=== PATIENT | male | born 1975 | race African-American/Black ===

== ENCOUNTER 2018-01-10 15:25 | Emergency (ER) | payer OTHER ==
[~2018-01-10] VITALS: Ht 182.9 cm; Wt 136.1 kg
[2018-01-10] MEDS ORDERED: ERYTHROMYCIN E3.5 G3 OPHTHALMIC (15:28)
[2018-01-10] MEDS ORDERED: BENADRYL25 MG PO (15:28)
[2018-01-10] MEDS ORDERED: METFORMIN HCL500 MG PO (15:32)
[2018-01-10 16:01] VITALS: BP 173/101
== END 2018-01-10 15:57 | disposition home or self-care (01) ==
LOC: ER 15:25
DX: H10.9 Unspecified conjunctivitis (principal); E11.9 Type 2 diabetes mellitus without complications; J45.909 Unspecified asthma, uncomplicated

== ENCOUNTER 2018-02-09 05:40 | Emergency (ER) | payer OTHER ==
[~2018-02-09] VITALS: Ht 180.3 cm; Wt 136.1 kg
[~2018-02-09 05:40] MED LIST: BENADRYL25 MG PO; ERYTHROMYCIN E3.5 G3 OPHTHALMIC; METFORMIN HCL500 MG PO
[2018-02-09] MEDS ORDERED: HUMALOG100 UNIT/1 SUBQ (06:14)
[2018-02-09] MEDS ORDERED: GLYBURIDE 5 MG T5 M1 PO ×2 (06:14→07:14)
[2018-02-09] MEDS ORDERED: METFORMIN HCL500 MG PO (07:14)
[2018-02-09 07:55] VITALS: BP 141/89
== END 2018-02-09 07:56 | disposition home or self-care (01) ==
LOC: ER 05:40
DX: E11.65 Type 2 diabetes mellitus with hyperglycemia (principal); R20.2 Paresthesia of skin; Z91.14 Patient's other noncompliance with medication regimen; J45.909 Unspecified asthma, uncomplicated; F17.210 Nicotine dependence, cigarettes, uncomplicated; Z79.4 Long term (current) use of insulin